=== PATIENT | male | born 1975 | race Caucasian/White ===

== ENCOUNTER 2021-07-10 09:00 | Emergency (ER) | payer MEDICAID, SELFPAY ==
[2021-07-10 09:20] VITALS: BP 170/123; PULSE 97; RESP 15; TEMP 36.8; O2SAT 98; BMI 29.2
--- NOTE | 2021-07-10 09:31 | W.ED.AMS ---
HPI - Altered Mental Status General: Chief Complaint: Altered Mental Status Stated Complaint: hallucinations/meth drug use Time Seen by Provider: 07/10/21 09:30 History of Present Illness: 46-year-old gentleman presents due to hallucinations and delusions of persecution in setting of amphetamine use. States he last used amphetamines on Thursday. States that he believes there are people following him and trying to hurt him. Denies any headache or head injury. Denies any chest pain or shortness of breath. States he has had similar episodes in the past when amphetamine use. Denies any interim drug use. Denies any desire to hurt himself or anyone else. Review of Systems Narrative: - CONSTITUTIONAL: Denies weight loss, fever and chills. - HEENT: Denies changes in vision and hearing. - RESPIRATORY: Denies SOB and cough. - CV: Denies palpitations and CP. - GI: Denies abdominal pain, nausea, vomiting and diarrhea. - : Denies dysuria and urinary frequency. - MSK: Denies myalgia and joint pain. - SKIN: Denies rash and pruritus. - NEUROLOGICAL: Denies headache, weakness, numbness and syncope. - PSYCHIATRIC: As above Physical Exam Narrative: - GENERAL: Alert and oriented x 3. No acute distress. Well-nourished. - EYES: EOMI. Anicteric. - HENT: Atraumatic, no C-spine tenderness. Moist mucous membranes. No scleral icterus. No cervical lymphadenopathy. - LUNGS: Clear to auscultation bilaterally. No accessory muscle use. Equal lung sounds bilaterally. No respiratory distress. - CARDIOVASCULAR: Regular rate and rhythm. No murmur. No JVD. - ABDOMEN: Soft, non-tender and non-distended. Negative CVA tenderness bilaterally, no rebound or guarding, negative Kirkpatrick sign. No palpable masses. - EXTREMITIES: No edema. Non-tender. - SKIN: No rashes or lesions. Warm. - NEUROLOGIC: No meningismus or focal neurological deficits. CN II-XII grossly intact. - PSYCHIATRIC: Irritable and easily agitated. Paranoid ideation. Course Vital Signs: Vital signs: Vital Signs Temperature 98.2 F 07/10/21 09:20 Pulse Rate 97 07/10/21 09:20 Respiratory Rate 15 07/10/21 09:20 Blood Pressure 170/123 07/10/21 09:20 Pulse Oximetry 98 07/10/21 09:20 MDM - Altered Mental Status Medical Decision Making 46-year-old presents due to concern for delusions in the setting of amphetamine abuse. UDS positive for amphetamines marijuana. Remainder of lab work unremarkable. No signs of focal trauma. Patient is alert suicidal homicidal. Discussed with psychiatry recommend outpatient follow-up. disease case manager rn talk to family and provided resources. At this time I believe patient would be safe for discharge and outpatient follow-up. Return precautions provided. Plan was reviewed with the patient who expressed understanding. Questions answered. Patient will follow up with PCP. Patient discharged in stable condition. Lab Data : 07/10/21 10:15 07/10/21 10:15 Laboratory Results WBC 7.3 10^3/uL (4.0-10.0) 07/10/21 10:15 RBC 5.79 10^6/uL (4.1-5.3) H 07/10/21 10:15 Hgb 17.2 g/dL (11.7-16.6) H 07/10/21 10:15 Hct 50.7 % (42.0-52.0) 07/10/21 10:15 MCV 87.6 fl (80-94) 07/10/21 10:15 MCH 29.7 pg (28.0-34.0) 07/10/21 10:15 MCHC 33.9 g/dL (30.0-36.0) 07/10/21 10:15 RDW 12.2 % (12.1-15.1) 07/10/21 10:15 Plt Count 177 10^3/cmm (130-400) 07/10/21 10:15 MPV 10.0 fL (7.4-10.4) 07/10/21 10:15 Neut % (Auto) 70.8 % 07/10/21 10:15 Lymph % (Auto) 17.2 % 07/10/21 10:15 [place] % (Auto) 11.1 % 07/10/21 10:15 Eos % (Auto) 0.0 % 07/10/21 10:15 Baso % (Auto) 0.6 % 07/10/21 10:15 Neut # (Auto) 5.15 10^3/uL (1.8-7.7) 07/10/21 10:15 Lymph # (Auto) 1.3 10^3/uL (0.8-4.8) 07/10/21 10:15 [place] # (Auto) 0.8 10^3/uL (0.2-0.9) 07/10/21 10:15 Eos # (Auto) 0.0 10^3/uL (0.0-0.8) 07/10/21 10:15 Baso # (Auto) 0.0 10^3/uL (0.0-0.1) 07/10/21 10:15 Nucleated RBC % (auto) 0 % 07/10/21 10:15 Nucleated RBCs # 0.0 /100WBC 07/10/21 10:15 Sodium 136 mmol/L (136-145) 07/10/21 10:15 Potassium 3.9 mmol/L (3.5-5.1) 07/10/21 10:15 Chloride 100 mmol/L (98-107) 07/10/21 10:15 Carbon Dioxide 26 mmol/L (22-29) 07/10/21 10:15 Anion Gap 13.9 (5-19) 07/10/21 10:15 BUN 11 mg/dL (6-20) 07/10/21 10:15 Creatinine 1.2 mg/dL (0.7-1.2) 07/10/21 10:15 GFR Calculation 65.5 mL/min (90-130) L 07/10/21 10:15 Glucose 138 mg/dL (65-115) H 07/10/21 10:15 Calculated Osmolality 284 mOsm/kg (285-295) L 07/10/21 10:15 Calcium 9.2 mg/dL (8.5-10.5) 07/10/21 10:15 Total Bilirubin 0.6 mg/dL (0.15-1.2) 07/10/21 10:15 AST 61 U/L (0-40) H 07/10/21 10:15 ALT 39 U/L (0-41) 07/10/21 10:15 Alkaline Phosphatase 100 IU/L (40-130) 07/10/21 10:15 Total Protein 7.3 g/dL (6.6-8.7) 07/10/21 10:15 Albumin 4.6 g/dL (3.5-5.2) 07/10/21 10:15 Globulin 2.7 g/dL (1.3-4.6) 07/10/21 10:15 TSH 1.05 uIU/mL (0.27-4.20) 07/10/21 10:15 Free T4 1.54 ng/dL (0.82-1.77) 07/10/21 10:15 Urine Color Yellow (Yellow) 07/10/21 10:15 Urine Appearance Clear (CLEAR) 07/10/21 10:15 Urine pH 7 (5-7) 07/10/21 10:15 Ur Specific [place] 1.010 (1.005-1.030) 07/10/21 10:15 Urine Protein Neg (Negative) 07/10/21 10:15 Urine Glucose (UA) Norm (Normal) 07/10/21 10:15 Urine Ketones Negative (Negative) 07/10/21 10:15 Urine Blood Neg (Negative) 07/10/21 10:15 Urine Nitrate Negative (Negative) 07/10/21 10:15 Urine Bilirubin Neg (Negative) 07/10/21 10:15 Urine Urobilinogen Neg mg/dL (Negative) 07/10/21 10:15 Ur Leukocyte Esterase Negative (Negative) 07/10/21 10:15 Urine RBC Rare /hpf (0-2) 07/10/21 10:15 Urine WBC 0-4 /hpf (0-5) H 07/10/21 10:15 Ur Squamous Epith Cells 0-4 /hpf (0-5) H 07/10/21 10:15 Amorphous Sediment Not Reportable 07/10/21 10:15 Urine Bacteria None /hpf (NONE) 07/10/21 10:15 Salicylates < 0.3 mg/dL (3-10) L 07/10/21 10:15 Urine Opiates Screen Negative ng/mL (Negative) 07/10/21 10:15 Acetaminophen < 5.0 ug/mL (10-30) L 07/10/21 10:15 Ur Barbiturates Screen Negative ng/mL (Negative) 07/10/21 10:15 Ur Phencyclidine Scrn Negative ng/mL (Negative) 07/10/21 10:15 Ur Amphetamines Screen Positive ng/mL (Negative) H 07/10/21 10:15 U Benzodiazepines Scrn Negative ng/mL (Negative) 07/10/21 10:15 Urine Cocaine Screen Negative ng/mL (Negative) 07/10/21 10:15 U Marijuana (THC) Screen Positive ng/mL (Negative) H 07/10/21 10:15 Ethyl Alcohol < 10 mg/dL (0-10) 07/10/21 10:15 EKG Data EKG 1: Other EKG comments: Sinus rhythm, rate of 95, no sign of acute ischemia or other acute abnormality. 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
--- NOTE | 2021-07-10 09:42 | ECG_ITS ---
[facility] Test Date: 2021-07-10 Pat Name: Olivier Phillips Department: Room: Gender: Male Grass Cutter: : 1975 Requested By: Preet Caro Order Number: [id number] Deidre MD: Cristiane Pham M.D. Measurements Intervals [place] Rate: 95 P: 68 NE: 134 QRS: 21 QRSD: 87 T: 38 QT: 372 QTc: 469 Interpretive Statements SINUS RHYTHM Compared to ECG 03/22/2019 02:08:25 Sinus tachycardia no longer present T-wave abnormality no longer present Electronically Signed On 07-10-2021 18:25:20 CDT by Cristiane Pham M.D. [id number]
[2021-07-10 10:26] LABS: Basophils % 0.6 %; Hematocrit 50.7 % (42.0-52.0); Hemoglobin 17.2 g/dL (11.7-16.6); Lymphocytes # 1.3 10^3/uL (0.8-4.8); Lymphocytes % 17.2 %; Mean Corpuscular HGB Conc 33.9 g/dL (30.0-36.0); Mean Corpuscular Hemoglobin 29.7 pg (28.0-34.0); Mean Corpuscular Volume 87.6 fl (80-94); Monocytes # 0.8 10^3/uL (0.2-0.9); Monocytes % 11.1 %; Neutrophils # 5.15 10^3/uL (1.8-7.7); Neutrophils % 70.8 %; Nucleated Red Blood Cells % 0 %; Platelet Count 177 10^3/cmm (130-400); Red Blood Count 5.79 10^6/uL (4.1-5.3); Red Cell Distribution Width 12.2 % (12.1-15.1); White Blood Count 7.3 10^3/uL (4.0-10.0)
[2021-07-10 10:43] LABS: Amphetamines Screen Urine Positive (Negative); Barbiturates Screen Urine Negative (Negative); Benzodiazepines Screen Urine Negative (Negative); Cocaine Screen Urine Negative (Negative); Opiate Screen Urine Negative (Negative); PCP Screen Urine Negative (Negative); THC Screen Urine Positive (Negative)
[2021-07-10 10:45] LABS: Urine Appearance Clear (CLEAR); Urine Color Yellow (Yellow); pH Urine 7 (5-7)
[2021-07-10 10:46] LABS: Add Urine Culture? No; Bilirubin Urine Neg (Negative); Blood Urine Neg (Negative); Glucose Urine UA Norm (Normal); Ketones Urine Negative (Negative); Leukocyte Esterase Urine Negative (Negative); Nitrate Urine Negative (Negative); Protein Urine Neg (Negative); RBC Urine RARE /hpf (0-2); Squamous Epithelial Cell Urine 0-4 /hpf (0-5); Urobilinogen Urine Neg (Negative); WBC Urine 0-4 /hpf (0-5)
[2021-07-10 11:02] LABS: Alanine Aminotransferase 39 U/L (0-41); Albumin Level 4.6 g/dL (3.5-5.2); Alkaline Phosphatase 100 IU/L (40-130); Anion Gap 13.9 (5-19); Aspartate Amino Transferase 61 U/L (0-40); Blood Urea Nitrogen 11 mg/dL (6-20); Calcium 9.2 mg/dL (8.5-10.5); Carbon Dioxide 26 mmol/L (22-29); Chloride 100 mmol/L (98-107); Free T4 Free Thyroxine 1.54 ng/dL (0.82-1.77); Globulin 2.7 g/dL (1.3-4.6); Glomerular Filtration Rate 65.5 mL/min (90-130); Glucose 138 mg/dL (65-115); Osmolality Calculated 284 mOsm/kg (285-295); Potassium 3.9 mmol/L (3.5-5.1); Sodium 136 mmol/L (136-145); Thyroid Stimulating Hormone 1.05 uIU/mL (0.27-4.20); Total Bilirubin 0.6 mg/dL (0.15-1.2); Total Protein 7.3 g/dL (6.6-8.7)
[2021-07-10 11:03] LABS: Acetaminophen < 5.0 ug/mL (10-30); Alcohol Level < 10 mg/dL (0-10); Salicylate < 0.3 mg/dL (3-10)
== END 2021-07-10 12:40 | disposition home or self-care (01) ==
PROVIDERS: Emergency Provider Emergency Medicine; PCP Nurse Practitioner
DX: F15.99 Other stimulant use, unspecified with unspecified stimulant-induced disorder (principal)
CPT/HCPCS: 80053; 80306; 80307; 81001; 84439; 84443; 85025; 93005; 99283